=== PATIENT | female | born 1985 | race Caucasian/White ===

== ENCOUNTER 2025-01-20 17:57 | Emergency (ER) | payer OTHER, SELFPAY ==
--- NOTE | 2025-01-20 | ECG_ITS ---
Test Reason : CHEST PAIN Blood Pressure : */* mmHG Vent. Rate : 119 BPM Atrial Rate : 119 BPM P-R Int : 148 ms QRS Dur : 72 ms QT Int : 296 ms P-R-T Axes : 61 49 2 degrees QTcB Int : 416 ms Sinus tachycardia Otherwise normal ECG No previous ECGs available Referred By: Generic ED Physician Electronically Signed By: Nathan Orellana
--- NOTE | ~2025-01-20 | XR_ITS ---
CLINICAL HISTORY: cough, chest pain 2 view chest x-ray Comparison: None provided Findings: The lungs are clear. Normal size heart. No acute fracture. IMPRESSION: 1. No acute findings. This document has been electronically signed by: Rudolph Baird MD on 01/20/2025 19:02:10
[2025-01-20 18:14] VITALS: BP 138/109; PULSE 118; RESP 20; TEMP 36.9; O2SAT 97; BMI 32.1
--- NOTE | 2025-01-20 18:16 | ED_ITS ---
HPI - SOB/Dyspnea General Chief Complaint: General Medical Stated Complaint: chest pain, diff breathing Time Seen by Provider: 01/20/25 21:02 Source: patient and family (patient's mother) Mode of arrival: ambulatory Limitations: no limitations History of Present Illness ED Provider: Nina Ferreira PA-C HPI Narrative: Patient is a 39 year old assigned female at with a history of asthma presenting to the emergency department today with chest tightness, chills, cough, headache, and dizziness. Patient states that on 01/14/2025 he began to have chills, chest tightness, headache and dizziness. Patient states that on 01/12/2025 she was at an estate sale where she was going through belongings covered in rat droppings. Patient states that she has been trying left over steroids for her symptoms but they have not improved. Patient denies any lightheadedness, abdominal pain, nausea, vomiting, fever, blurry vision, double vision, loss of vision, difficulty breathing, shortness of breath, back pain, night sweats, pain with urination, increased urinary frequency, increased urinary urgency, blood in her urine or stool, syncope or a near syncopal episode, recent trauma or falls, bowel incontinence, bladder incontinence, or any other complaints at this time. Related Data Previous Rx's ?Medication ?Instructions ?Recorded amoxicillin 875 mg-potassium 1 tab PO BID 7 days #14 t abs 01/20/25 clavulanate 125 mg tablet doxycycline hyclate 100 mg tablet 100 mg PO BID 7 days #14 tabs 01/20/25 Allergies Allergy/AdvReac Type Severity Reaction Status Date / Time ibuprofen (From MOTRIN) Allergy Mild LIP Unverified 01/20/25 18:16 SWELLING Review of Systems 2 Constitutional: Constitutional: Reports no additional constitutional complaints, Reports chills, Denies fever(s), Reports headache(s) and Denies night sweats Eyes: Eyes: Reports no additional eye complaints, Denies blurry vision, Denies change in vision, Denies diplopia, Denies eye discharge, Denies loss of vision and Denies eye pain ENT: Reports dizziness and Reports headache(s) Cardiovascular: Cardiovascular: Reports no additional cardiovascular complaints, Reports chest pain, Denies lightheadedness, Denies Loss of Consciousness and Denies dyspnea Respiratory: Respiratory: Reports no additional respiratory complaints, Reports cough and Denies dyspnea Gastrointestinal: Gastrointestinal: Reports no additional gastrointestinal complaints, Denies abdominal pain, Denies melena, Denies hematochezia, Denies change in bowel habits and Denies change in stool character Genitourinary: Genitourinary: Denies hematuria, Denies urinary frequency, Denies dysuria, Denies urinary incontinence, Denies urinary hesitancy and Denies urinary urgency Musculoskeletal: Musculoskeletal: Reports no additional musculoskeletal complaints, Denies numbness and Denies tingling Neurologic: Reports dizziness, Reports headache(s), Denies loss of vision, Denies numbness and Denies tingling Psychiatric: Psychiatric: Reports no additional psychiatric complaints Endocrine: Endocrine: Reports no additional endocrine complaints Hematologic/Lymphatic: Hematologic/Lymphatic: Reports no additional hematologic/lymphatic complaints Allergic/Immunologic: Allergic/Immunologic: Reports no additional allergic/immunologic complaints PMFSH Past Medical History Attestation statement: The following information was validated with the patient. (all information validated with the patient's mother) Source: old records reviewed, obtained from family (patient's mother provided additional history and confirmed the history provided by the patient.) and nursing notes reviewed Social History Social History Advance Directives: No Advance Directives Information Provided: Yes Physical Exam 2 Vital Signs: Vital Signs: Last Vital Signs Temp 98.6 F 01/20/25 22:41 Pulse 95 01/20/25 22:41 Resp 16 01/20/25 22:41 BP 120/73 01/20/25 22:41 Pulse Ox 98 01/20/25 22:41 O2 Del Method Room Air 01/20/25 22:41 BMI result Body Mass Index 32.1 Const: General: cooperative, no acute distress, alert and awake Nutritional Appearance: well nourished Orientation/consciousness: patient oriented x3 HEENT: Head: Yes normal to inspection and Yes atraumatic Ears: hearing grossly normal bilaterally and external ears normal General nose exam: Normal external nose present, no nasal discharge noted and no epistaxis Face and sinus: Yes normal facial exam, No abrasion and No laceration Mouth: Normal oral and palatal mucosa present, no drooling and no muffled voice Eyes: General: appearance normal, both eyes and all related structures P eriorbital: periorbital findings normal Eyelids: Yes eyelids normal C onjunctivae: conjunctivae normal Pupils: Equal, round and reactive pupils present EOM: EOMs intact bilaterally Neck: Neck: Yes normal visual inspection, Yes full ROM and Yes no lymphadenopathy Resp: Effort & Inspection: normal respiratory effort and able to speak in complete sentences Neuro: General: patient oriented x3, moves all extremities and CN's II-XI intact bilaterally Cranial nerves: Yes Equal, round and reactive pupils present Cognition (Neuro): normal cognition Extrem: General: Yes normal to inspection, Yes full ROM and Yes capillary refill normal Psych: Appearance: grossly normal Mental Status: mental status grossly normal Affect: normal affect Attitude: cooperative Thought process: N ormal thought process present Thought content: Normal thought content present Insight: Good insight present (Psych) Course Course Course Narrative: This is a Rapid Medical Examination (RME) performed by Ronny Chaidez PA-C in triage. Full HPI, ROS, assessment and treatment plan per primary provider in the Main ED. 39 yo female with history of asthma presenting to the ER for evaluation of chest pain and pressure, SOB, mildly productive cough. She has been using her inhaler and nebulizer at home with no relief. no wheezing on exam. tachy to 120, reports she just used her Plan: CXR, EKG Medications Administered Discontinued Medications Generic Name Dose Route Start Last Admin Trade Name Elisabeth PRN Reason Stop Dose Admin Albuterol/Ipratropium 3 ml 01/20/25 22:42 01/20/25 22:46 Albuterol/Iprat 2.5/0.5mg 3 Ml Ampul.Neb INHALE 01/20/25 22:43 3 ml ONCE ONE Administration Amoxicillin/Clavulanate Potassium 875 mg 01/20/25 21:47 01/20/25 22:36 Amoxicillin/Potassium Clav 875 Mg Tablet PO 01/20/25 21:48 875 mg ONCE ONE Administration Dexamethasone Sodium Phosphate 10 mg 01/20/25 21:18 01/20/25 21:32 Dexamethasone Sod Phosphate 10 Mg/Ml Vial IVPUSH 01/20/25 21:19 10 mg ONCE ONE Administration Doxycycline Monohydrate 100 mg 01/20/25 21:47 01/20/25 22:36 Doxycycline Monohydrate 100 Mg Capsule PO 01/20/25 21:48 100 mg ONCE ONE Administration Medical Decision Making Medical Decision Making MDM Narrative: Patient is a 39 year old assigned female at with a history of asthma presenting to the emergency department today with chest tightness, chills, cough, headache, and dizziness. Patient's physical exam was unremarkable. Patient's blood work showed a WBC count of 16.4 but otherwise unremarkable. Patient's EKG was unremarkable. Patient's chest x-ray showed no acute process. Patient non toxic appearing with non labored breathing. I consulted with my attending physician, Dr. Johnson, who stated this was unlikely to be Hantavirus given our geographic location and recommended treating the patient as an atypical pneumonia with augmentin and doxycycline. Hantavirus testing drawn but will not result for several days. I explained my physical exam findings as well as all test results to the patient and the patient's mother. I answered all questions asked by the patient and the patient's mother. I stressed the importance of the patient taking her medication as directed (either prescribed or as the over the counter packaging recommends). I stressed the importance of the patient following up with her primary care provider. I stressed the importance of the patient returning to the emergency department immediately if her symptoms were to worsen or if she were to develop any dizziness, shortness of breath, difficulty breathing, chest pain, blurry vision, loss of vision, nausea, vomiting, abdominal pain, fever, chills, back pain, or any other complaints. Patient and the patient's mother verbalized agreement and understanding with this treatment plan and discharge. Differential Diagnosis Differential Diagnoses: The differential diagnosis associated with the presentation includes Viral illness Atypical pneumonia COVID-19 Influenza RSV Asthma exacerbation Hantavirus Admission/Observation Consideration of admission/observation: Escalation of care including admission/observation considered Patient would have been admitted to the hospital had her work up had any findings where hospital admission was appropriate and her clinical presentation warranted hospital admission. Lab Data [facility] Lab Attestation statement: I reviewed the patient's lab results. My interpretation of these results are in the [facility] Rationale portion of this note. 01/20/25 18:37 01/20/25 18:37 Labs: Lab Results 01/20/25 Range/Units 18:37 WBC 16.4 H (4.8-10.8) X10*3/uL RBC 4.18 L (4.20-5.50) X10*6/uL Hgb 12.5 (12.0-16.0) g/dl Hct 35.7 L (37.0-47.0) % MCV 85.4 (80.0-98.0) fL MCH 29.9 (27.0-33.0) pg MCHC 35.0 (31.0-35.0) g/dl RDW 13.2 (11.0-16.0) % Plt Count 359 (160-400) X10*3/uL MPV 9.0 L (9.4-12.3) fL Immature Gran % (Auto) 0.3 (0.0-0.4) % Neut % (Auto) 65.2 (45-73) % Lymph % (Auto) 23.3 (20-40) % Dundy % (Auto) 10.0 (2-11) % Eos % (Auto) 1.0 (0-4) % Baso % (Auto) 0.2 (0-2) % Lymph # (Auto) 3.8 (1.2-4.9) X10*3/uL Dundy # (Auto) 1.6 H (0.1-1.2) X10*3/uL Eos # (Auto) 0.2 (0.0-0.4) X10*3/uL Baso # (Auto) 0.0 (0.0-0.2) X10*3/uL Abs Immat Gran (auto) 0.05 H (0.00-0.03) X10*3/uL Absolute Neuts (auto) 10.7 H (2.0-8.3) x10*3/uL Absolute Nucleated RBC 0.000 (0.0-0.012) X10*3/uL Nucleated RBC % (auto) 0.0 (0.0-0.2) /100WBC Smear Tech's Comments VERIFIED PT 10.1 L (10.9-12.4) SEC INR 0.9 (0.9-1.1) APTT 28.4 (26.0-36.8) SEC Sodium 139 (135-145) mmol/L Potassium 3.3 (3.3-5.1) mmol/L Chloride 107 (96-108) mmol/L Carbon Dioxide 24 (22-29) mmol/L Anion Gap 11 L (12-20) BUN 11 (9-16) mg/dL Creatinine 0.94 (0.5-1.4) mg/dL Estim Creat Clear Calc 76.9 Estimated GFR > 60 Random Glucose 93 (60-115) mg/dL Calcium 9.4 (8.4-10.2) mg/dL Magnesium 2.0 (1.6-2.6) mg/dL Total Bilirubin 0.2 (0.0-1.0) mg/dL Direct Bilirubin < 0.2 (0.0-0.5) mg/dL AST 21 (5-31) U/L ALT 15 (0-31) U/L Alkaline Phosphatase 65 (39-117) U/L Troponin I High Sens < 2.7 (<3.5-17.0) ng/L Total Protein 7.4 (6.5-8.0) g/dL Albumin 4.3 (3.5-5.0) g/dL Influenza Type A (PCR) NEGATIVE (Negative) Influenza Type B (PCR) NEGATIVE (Negative) RSV RNA Qual (PCR) NEGATIVE (Negative) SARS-CoV-2 RNA (RT-PCR) NEGATIVE (Negative) Independent Interpretation I performed an independent interpretation of an: EKG and Plain X-Ray Interpretation: My interpretation is in agreement with the radiologist's impression of this imaging study. L CLINICAL HISTORY: cough, chest pain 2 view chest x-ray Comparison: None provided Findings: The lungs are clear. Normal size heart. No acute fracture. IMPRESSION: 1. No acute findings. This document has been electronically signed by: Rudolph Baird MD on 01/20/2025 19:02:10 Dictated By: Rudolph Baird MD Signed By: Electronically signed by Rudolph Baird MD 01/20/251901 I independently interpreted this EKG and am in agreement with the below findings: Vent. Rate: 119 BPM Atrial Rate: 119 BPM P-R Int: 148 ms QRS Dur: 72 ms QT Int: 296 ms P-R-T Axes: 61 49 2 degrees QTcB Int: 416 ms Sinus tachycardia Otherwise normal ECG No previous ECGs available DD/ 1805 Radiology Impression Discussion of test interpretation with radiology: I have reviewed the radiologist's reading. Independent Historian Clinical information obtained from an independent historian. History obtained from or confirmed by: Parent (patient's mother provided additional history and confirmed the history provided by the patient.) Prescription Management I considered prescription management with: Antibiotic (patient prescribed antibiotics for atypical penumonia) Discharge Plan Discharge Clinical Impression: Atypical pneumonia Patient Disposition: Home, Self-Care Instructions: Pneumonia (ED) Additional Instructions: Be sure to stay out of direct sunlight while on your medication. Follow up with your primary care provider. Return to the emergency department immediately if your symptoms worsen or if you develop any numbness, tingling, dizziness, shortness of breath, difficulty breathing, chest pain, blurry vision, loss of vision, nausea, vomiting, abdominal pain, fever, chills, back pain, or any other complaints. Please see the information below about our Patient Portal. If you are not yet enrolled in the [facility] Patient Portal, you will receive an enrollment email invitation following your visit to any [facility] setting. You may also self-enroll in the Patient Portal by visiting our website: [email or web address] The following information is required to access the Patient Portal: - Your [facility] Medical Record Number - Your personal home email address (must match what is in your electronic medical record, Registration staff can assist with this) - Name - Date of Capabilities of the Patient Portal: - Message some providers - View upcoming appointments - Access your health summary, medical history, and visit history - View current conditions and allergies - View procedure and lab results - View your medications, including guidelines, side effects, and precautions - Complete pre-appointment questionnaires requested by your provider - Ready summary reports of your office visits and procedures To access the Patient Portal Mobile [employer], follow these directions: - Search [employer] in the Suk[employer] Store or Google Play Store - Download the Sukhjinder - Search for [facility] - Enter your login/password Prescriptions: New doxycycline hyclate 100 mg tablet 100 mg PO BID 7 Days Qty: 14 0RF amoxicillin-pot clavulanate 875-125 mg tablet 1 tab PO BID 7 Days Qty: 14 0RF Referrals: [facility] Family Medicine [Provider Group, Family Practice] Referral Note: Call to establish and follow up with a primary care provider. If you already have a primary care provider, please follow up with them. Interventions: ED Discharge Assessment Last Done: 01/20/25 22:41 Discharge Date/Time: 01/20/25 23:04 Print Language: Czech
--- OUTSIDE RECORDS SUMMARY | 2025-01-20 18:40 | XMS_ITS | Clinical Summary ---
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 Name Role Phone Ange Jorgensen MD Primary Care Provider [phone] Family History Medical History Relation Name Comments Diabetes Father Other: deuce-danlos Mother Also Un sindi and cousin Relation Name Status Comments Father Mother Social History Tobacco Use Types Packs/Day Years Used Date Smoking Tobacco: Never Alcohol Use Standard Drinks/Week Comments Not Asked 0 (1 standard drink = 0.6 oz pur e alcohol) Comments Unknown Sex and Gender Information Value Date Recorded Sex Assigned at Not on file Legal Sex Female 4:51 AM EST Gender Identity Not on file Sexual Orientation Not on file Obstetrics History Plan of Treatment Health Maintenance Due Date Last Done Comments Cervical Cancer Screening: Pap Smear 2008 DTaP,Tdap,and Td Vaccines (7 - Td or Tdap) 05/20/2010 05/20/2000, 05/17/1993, 04/17/1989, Additional history exists COVID-19 Vaccine ( season) 2024 Influenza Vaccine (Season Ended) 2025 HIB Vaccines Completed 04/17/1989 IPV Vaccines Completed 05/17/1993, 04/03, 04/17/1989, Additional history exists MMR Vaccines Completed 05/20/2000, 12/15/1988 Hepatitis B Vaccines Completed 02/09/2001, 05/20/20 00 HPV Vaccines Aged Out No longer eligi ble based on patient's age to complete this topic Hepatitis A Vaccines Aged Out No long er eligible based on patient's age to complete this topic Meningococcal ACWY Vaccine Aged Out N o longer eligible based on patient's age to complete this topic Meningococcal B Vaccine Aged Out No l onger eligible based on patient's age to complete this topic Pneumococcal Vaccine: Pediatrics (0 to 5 Years) and At-Risk Patients (6 to 64 Years) Aged Out No longer eligible based on patient's age to complete this topic RSV Immunization Patients Under 20 months Aged Out No longer eligible based on patient's age to complete this topic Varicella Vaccines Aged Out No longer eligible based on patient's age to complete this topic Care Teams [employer] Machine Operator Relationship Specialty Start Date End Date Ange Jorgensen MD [address] [place] [address] PCP - General 03/25/04
[2025-01-20 18:50] LABS: Basophils Percent Auto 0.2 % (0-2); Eosinophils Absolute Auto 0.2 X10*3/uL (0.0-0.4); Hematocrit 35.7 % (37.0-47.0); Hemoglobin 12.5 g/dl (12.0-16.0); Imm Gran Abs Auto 0.05 X10*3/uL (0.00-0.03); Imm Gran Pct Auto 0.3 % (0.0-0.4); Lymphocytes Absolute Auto 3.8 X10*3/uL (1.2-4.9); Lymphocytes Percent Auto 23.3 % (20-40); MANUAL DIFF FLAG SCAN; Mean Corpuscular Hemoglobin 29.9 pg (27.0-33.0); Mean Corpuscular Volume 85.4 fL (80.0-98.0); Monocytes Absolute Auto 1.6 X10*3/uL (0.1-1.2); Neutrophils Absolute Auto 10.7 x10*3/uL (2.0-8.3); Neutrophils Percent Auto 65.2 % (45-73); Platelet Count 359 X10*3/uL (160-400); Red Blood Count 4.18 X10*6/uL (4.20-5.50); Red Cell Distribution Width 13.2 % (11.0-16.0); SCAN SMEAR FLAG 1; White Blood Count 16.4 X10*3/uL (4.8-10.8)
[2025-01-20 19:01] LABS: INTERNATIONAL NORM RATIO 0.9 (0.9-1.1); Prothrombin Time 10.1 SEC (10.9-12.4)
[2025-01-20 19:03] LABS: Partial Thromboplastin Time 28.4 SEC (26.0-36.8)
[2025-01-20 19:06] LABS: Alanine Aminotransferase 15 U/L (0-31); Albumin Level 4.3 g/dL (3.5-5.0); Alkaline Phosphatase 65 U/L (39-117); Anion Gap 11 (12-20); Aspartate Amino Transferase 21 U/L (5-31); Bilirubin Direct < 0.2 mg/dL (0.0-0.5); Bilirubin Total 0.2 mg/dL (0.0-1.0); Blood Urea Nitrogen 11 mg/dL (9-16); Calcium 9.4 mg/dL (8.4-10.2); Carbon Dioxide 24 mmol/L (22-29); Chloride 107 mmol/L (96-108); Creatinine Clr Calc Pharmacy 76.9; Estimated Glomerular Filt Rate > 60; Glucose Random 93 mg/dL (60-115); Potassium 3.3 mmol/L (3.3-5.1); Sodium 139 mmol/L (135-145); Total Protein 7.4 g/dL (6.5-8.0)
[2025-01-20 19:13] LABS: SLIDE REVIEW VERIFIED
[2025-01-20 19:16] LABS: Troponin-I High Sensitivity < 2.7 ng/L (<3.5-17.0)
[2025-01-20 19:27] LABS: Influenza A PCR NEGATIVE (Negative); Influenza B PCR NEGATIVE (Negative); Resp Syncy Virus RNA Qual PCR NEGATIVE (Negative); SARS COV2 PCR INHOUSE NEGATIVE (Negative)
[2025-01-20 19:36] VITALS: BP 139/92; PULSE 88; RESP 14; TEMP 37; O2SAT 96
[2025-01-20] MEDS: dexAMETHasone sod phosphate 10 MG/ML VIAL IVPUSH (21:32)
[2025-01-20 21:50] VITALS: BP 128/80; PULSE 84; RESP 22; TEMP 36.6; O2SAT 98
[2025-01-20] MEDS: Doxycycline Monohydrate 100 MG CAPSULE PO (22:36)
[2025-01-20] MEDS: Amoxicillin/Potassium Clav 875 MG TABLET PO (22:36)
[2025-01-20 22:40] VITALS: BP 120/73; PULSE 95; RESP 16; TEMP 37; O2SAT 98
[2025-01-20 22:41] VITALS: BP 120/73; PULSE 95; RESP 16; TEMP 37; O2SAT 98
[2025-01-20] MEDS: Albuterol/Iprat 2.5/0.5MG 3 ML AMPUL.NEB INHALE (22:46)
== END 2025-01-20 23:04 | disposition home or self-care (01) ==
PROVIDERS: Physician Assistant; Physician Assistant Medical; Emergency Provider Emergency Medicine Emergency Medical Services
DX: J18.9 Pneumonia, unspecified organism (principal); R07.89 Other chest pain; R06.02 Shortness of breath; Z03.818 Encounter for observation for suspected exposure to other biological agents ruled out; Z79.899 Other long term (current) drug therapy
CPT/HCPCS: 0241U; 36415; 71046; 80048; 80076; 83735; 84484; 85025; 85610; 85730; 86790; 93005; 99284; J1100

== ENCOUNTER → 2025-01-20 18:05 | Outpatient (BNV) | payer SELFPAY | PROVIDERS: Emergency Provider Emergency Medicine Emergency Medical Services; Visit Provider Internal Medicine Cardiovascular Disease | DX: R00.0 Tachycardia, unspecified (principal) | CPT/HCPCS: 93010 ==

== ENCOUNTER → 2025-01-20 18:16 | Outpatient (BNV) | payer SELFPAY | PROVIDERS: Visit Provider Radiology Diagnostic Radiology | DX: R05.9 Cough, unspecified (principal); R07.9 Chest pain, unspecified | CPT/HCPCS: 71046 ==